=== PATIENT | female | born 1950 | race Asian ===

== ENCOUNTER → 2017-03-15 | Outpatient (CLI) | payer OTHER ==
[~2017-03-15] MED LIST: ALBU6.7H IH; ALPR0.5T8 PO; AMIO200T44 PO; BENZ-26 PO; FAMO20 PO; FLUT1DIS3 IH; FOLI1 PO; HYDR-3110 PO; HYDR-3965 PO; IPRNEB IH; LEVO100 PO; LEVO250T2 PO; LEVO500 PO; METF500T4 PO; METH2.5 PO; PRED20TA3 PO; TEMO15C TP; TIOT185 IH
== END | disposition home or self-care (01) ==
LOC: RADPV 11:12
PROVIDERS: ATTEND Internal Medicine Critical Care Medicine
DX: J44.9 Chronic obstructive pulmonary disease, unspecified (principal); J90 Pleural effusion, not elsewhere classified; I51.7 Cardiomegaly; R91.8 Other nonspecific abnormal finding of lung field; C34.90 Malignant neoplasm of unspecified part of unspecified bronchus or lung; J94.8 Other specified pleural conditions; J18.1 Lobar pneumonia, unspecified organism
CPT/HCPCS: 71020

== ENCOUNTER 2017-03-20 16:19 | Inpatient (IN) | payer OTHER ==
[~2017-03-20] VITALS: Ht 154.9 cm; Wt 60.5 kg
[~2017-03-20 16:19] MED LIST changes: -LEVO250T2 PO; -LEVO500 PO; -PRED20TA3 PO
[2017-03-20] MEDS ORDERED: IPRATROPIUM BROMIDE 0.5 MG/2.5 ML NEB SOLUTION NEB ONE (16:45)
[2017-03-20] MEDS ORDERED: ALBUTEROL SULFATE 5 MG/ML 20 ML NEB SOLN [BULK] NEB ONE (16:45)
[2017-03-20 16:52] LABS: GLUCOSE,POINT OF CARE 156 MG/DL (70-110)
[2017-03-20 17:18] LABS: BASOPHILS % (AUTO) 0.5 % (0.0-2.0); EOSINOPHILS % (AUTO) 10.3 % (1.0-6.0); HEMATOCRIT 23.8 % (36-46); HEMOGLOBIN 7.3 g/dL (12.0-16.0); LYMPHOCYTES # (AUTO) 1.4 K/uL (1.0-4.8); LYMPHOCYTES % (AUTO) 14.3 % (22.0-44.0); MEAN CORPUSCULAR HEMOGLOBIN 24.9 pg (26.0-34.0); MEAN CORPUSCULAR HGB CONC 30.5 G/dL (31.0-37.0); MEAN CORPUSCULAR VOLUME 82 fL (80-100); MONOCYTES # (AUTO) 0.9 K/uL (0.1-1.0); MONOCYTES % (AUTO) 9.6 % (2.0-9.0); NEUTROPHILS # (AUTO) 6.5 K/uL (1.8-7.7); NEUTROPHILS % (AUTO) 65.3 % (40.0-70.0); PLATELET COUNT (AUTO) 417 K/uL (150-450); RED BLOOD CELL COUNT(AUTO) 2.92 MIL/uL (4.00-5.20); RED CELL DISTRIBUTION WIDTH 18.8 % (11.5-14.5); WHITE BLOOD COUNT (AUTO) 9.9 K/uL (4.5-11.0)
[2017-03-20] MEDS ORDERED: 0.9% SODIUM CHLORIDE 5 ML NEB SOLUTION NEB ONE (17:21)
[2017-03-20 17:28] LABS: RBC MORPHOLOGY COMMENT ABNORMAL RBC MORPH
[2017-03-20 17:32] LABS: ANION GAP 6 mmol/L (8-16); CALCIUM, TOTAL 9.7 mg/dL (8.8-10.5); CARBON DIOXIDE 31 mmol/L (22-29); CHLORIDE 94 mmol/L (98-107); CREATININE 0.75 mg/dL (0.60-1.30); GLOMERULAR FILTR. RATE CALC > 60 mL/min (>60); POTASSIUM 3.8 mmol/L (3.5-5.1); SODIUM SERUM 131 mmol/L (136-145); UREA NITROGEN, BLOOD 12 mg/dL (7-18)
[2017-03-20 17:37] LABS: B-TYPE NATRIURETIC PEPTIDE 207 pg/mL (0-100)
[2017-03-20 17:38] LABS: ALANINE AMINOTRANSFERASE 49 U/L (12-78); ALBUMIN 2.4 g/dL (3.4-5.0); ASPARTATE AMINOTRANSFERASE 33 U/L (15-37); BILIRUBIN,TOTAL 0.2 mg/dL (0.1-1.0); TOTAL PROTEIN, SERUM 7.4 g/dL (6.4-8.2)
[2017-03-20] MEDS ORDERED: DEXAMETHASONE SOD PHOS 4 MG/ML 5 ML VIAL IVP ONE (18:00)
[2017-03-20 18:12] LABS: APPEARANCE,URINE CLEAR (CLEAR); GLUCOSE, URINE (UA) NEGATIVE (NEGATIVE); KETONES,URINE NEGATIVE (NEGATIVE); LEUKOCYTE ESTERASE ,URINE NEGATIVE (NEGATIVE); OCCULT BLOOD,URINE NEGATIVE (NEGATIVE); PROTEIN,URINE NEGATIVE (NEGATIVE)
[2017-03-20 18:17] LABS: ADD UA MICROSCOPIC NO
[2017-03-20] MEDS ORDERED: 0.9% SODIUM CHLORIDE 10 ML SYRINGE IVP PRN (19:45)
[2017-03-20] MEDS ORDERED: ACETAMINOPHEN 325 MG TABLET PO PRN (19:45)
[2017-03-20] MEDS ORDERED: ONDANSETRON HCL 4 MG/2 ML VIAL IVP PRN (19:45)
[2017-03-20 20:15] VITALS: BP 99/46
[2017-03-20] MEDS ORDERED: ALBUTEROL SULFATE 2.5 MG/0.5 ML NEB SOLUTION NEB PRN (22:45)
[2017-03-20] MEDS ORDERED: IPRATROPIUM BROMIDE 0.5 MG/2.5 ML NEB SOLUTION NEB PRN (22:45)
[2017-03-20] MEDS ORDERED: MethylPREDNISolone SOD SUCC 125 MG/2 ML VIAL IVP ONE (23:00)
[2017-03-20] MEDS: PROMETHAZINE HCL/CODEINE 6.25-10MG/5ML SYRUP UDCUP PO PRN (23:40)
[2017-03-21 00:18] VITALS: BP 100/52
[2017-03-21] MEDS ORDERED: 0.9% SODIUM CHLORIDE 5 ML NEB SOLUTION NEB ONE (01:43)
[2017-03-21] MEDS: ALBUTEROL SULFATE 2.5 MG/0.5 ML NEB SOLUTION NEB SCH ×4 (01:43→20:02)
[2017-03-21 04:30] VITALS: BP 106/57
[2017-03-21] MEDS: LEVOTHYROXINE SODIUM 100 MCG TABLET PO SCH (06:15)
[2017-03-21] MEDS: IPRATROPIUM BROMIDE 0.5 MG/2.5 ML NEB SOLUTION NEB SCH ×3 (07:38→20:02)
[2017-03-21] MEDS ORDERED: MethylPREDNISolone SOD SUCC 40 MG/ML VIAL IVP SCH (08:00)
[2017-03-21 08:09] VITALS: BP_SYST 105; BP_SYST 90; BP_DIAS 49; BP_DIAS 58
[2017-03-21] MEDS: AMIODARONE HCL 200 MG TABLET PO SCH (08:40)
[2017-03-21] MEDS: MetFORMIN HCL 500 MG TABLET PO SCH ×2 (08:40→18:43)
[2017-03-21] MEDS: FOLIC ACID 1 MG TABLET PO SCH (08:40)
[2017-03-21] MEDS: PROMETHAZINE HCL/CODEINE 6.25-10MG/5ML SYRUP UDCUP PO PRN ×3 (08:41→20:15)
[2017-03-21] MEDS ORDERED: BENZONATATE 100 MG CAPSULE PO SCH (09:00)
[2017-03-21] MEDS ORDERED: FOLIC ACID 1 MG TABLET PO SCH (09:00)
[2017-03-21 11:21] VITALS: BP 105/57
[2017-03-21 13:16] LABS: EOSINOPHILS % (AUTO) 0 % (1.0-6.0); HEMATOCRIT 24.3 % (36-46); HEMOGLOBIN 7.6 g/dL (12.0-16.0); LYMPHOCYTES # (AUTO) 0.4 K/uL (1.0-4.8); LYMPHOCYTES % (AUTO) 3.6 % (22.0-44.0); MEAN CORPUSCULAR HEMOGLOBIN 25.8 pg (26.0-34.0); MEAN CORPUSCULAR HGB CONC 31.4 G/dL (31.0-37.0); MEAN CORPUSCULAR VOLUME 82 fL (80-100); MONOCYTES # (AUTO) 0.3 K/uL (0.1-1.0); MONOCYTES % (AUTO) 2.7 % (2.0-9.0); NEUTROPHILS # (AUTO) 9.6 K/uL (1.8-7.7); PLATELET COUNT (AUTO) 442 K/uL (150-450); RED BLOOD CELL COUNT(AUTO) 2.96 MIL/uL (4.00-5.20); RED CELL DISTRIBUTION WIDTH 19.1 % (11.5-14.5); WHITE BLOOD COUNT (AUTO) 10.3 K/uL (4.5-11.0)
[2017-03-21 13:20] LABS: NEUTROPHILS % (AUTO) 93.7 % (40.0-70.0)
[2017-03-21 13:28] LABS: ALANINE AMINOTRANSFERASE 48 U/L (12-78); ALBUMIN 2.4 g/dL (3.4-5.0); ANION GAP 5 mmol/L (8-16); ASPARTATE AMINOTRANSFERASE 25 U/L (15-37); BILIRUBIN,TOTAL 0.1 mg/dL (0.1-1.0); CALCIUM, TOTAL 10.5 mg/dL (8.8-10.5); CARBON DIOXIDE 32 mmol/L (22-29); CHLORIDE 100 mmol/L (98-107); CREATININE 0.77 mg/dL (0.60-1.30); GLOMERULAR FILTR. RATE CALC > 60 mL/min (>60); POTASSIUM 4.7 mmol/L (3.5-5.1); SODIUM SERUM 137 mmol/L (136-145); TOTAL PROTEIN, SERUM 7.6 g/dL (6.4-8.2); UREA NITROGEN, BLOOD 13 mg/dL (7-18)
[2017-03-21 13:38] LABS: RBC MORPHOLOGY COMMENT ABNORMAL RBC MORPH
[2017-03-21 15:40] VITALS: BP 96/51
[2017-03-21] MEDS: BENZONATATE 100 MG CAPSULE PO SCH ×2 (16:00→20:16)
[2017-03-21] MEDS: MethylPREDNISolone SOD SUCC 40 MG/ML VIAL IVP SCH ×2 (18:43→23:42)
[2017-03-21 19:50] VITALS: BP 94/55
[2017-03-21] MEDS: ALPRAZolam 0.25 MG TABLET PO SCH (20:14)
[2017-03-22 00:25] VITALS: BP 97/50
[2017-03-22] MEDS: IPRATROPIUM BROMIDE 0.5 MG/2.5 ML NEB SOLUTION NEB SCH ×4 (02:17→20:22)
[2017-03-22] MEDS: ALBUTEROL SULFATE 2.5 MG/0.5 ML NEB SOLUTION NEB SCH ×4 (02:17→20:22)
[2017-03-22 04:00] VITALS: BP 92/50
[2017-03-22] MEDS: PROMETHAZINE HCL/CODEINE 6.25-10MG/5ML SYRUP UDCUP PO PRN ×3 (04:37→20:47)
[2017-03-22] MEDS: MethylPREDNISolone SOD SUCC 40 MG/ML VIAL IVP SCH ×3 (05:44→17:39)
[2017-03-22] MEDS: LEVOTHYROXINE SODIUM 100 MCG TABLET PO SCH (05:47)
[2017-03-22 06:09] LABS: EOSINOPHILS % (AUTO) 0.02 % (1.0-6.0); HEMATOCRIT 23.6 % (36-46); HEMOGLOBIN 7.4 g/dL (12.0-16.0); LYMPHOCYTES # (AUTO) 0.4 K/uL (1.0-4.8); LYMPHOCYTES % (AUTO) 2.2 % (22.0-44.0); MEAN CORPUSCULAR HEMOGLOBIN 25.9 pg (26.0-34.0); MEAN CORPUSCULAR HGB CONC 31.3 G/dL (31.0-37.0); MEAN CORPUSCULAR VOLUME 83 fL (80-100); MONOCYTES # (AUTO) 0.5 K/uL (0.1-1.0); MONOCYTES % (AUTO) 3.1 % (2.0-9.0); NEUTROPHILS # (AUTO) 15.9 K/uL (1.8-7.7); PLATELET COUNT (AUTO) 408 K/uL (150-450); RED BLOOD CELL COUNT(AUTO) 2.85 MIL/uL (4.00-5.20); RED CELL DISTRIBUTION WIDTH 18.7 % (11.5-14.5); WHITE BLOOD COUNT (AUTO) 16.8 K/uL (4.5-11.0)
[2017-03-22 06:16] LABS: NEUTROPHILS % (AUTO) 94.8 % (40.0-70.0)
[2017-03-22 06:28] LABS: ALANINE AMINOTRANSFERASE 60 U/L (12-78); ALBUMIN 2.3 g/dL (3.4-5.0); ANION GAP 3 mmol/L (8-16); ASPARTATE AMINOTRANSFERASE 31 U/L (15-37); CALCIUM, TOTAL 10.4 mg/dL (8.8-10.5); CARBON DIOXIDE 34 mmol/L (22-29); CHLORIDE 101 mmol/L (98-107); CREATININE 0.89 mg/dL (0.60-1.30); GLOMERULAR FILTR. RATE CALC > 60 mL/min (>60); POTASSIUM 4.6 mmol/L (3.5-5.1); SODIUM SERUM 138 mmol/L (136-145); UREA NITROGEN, BLOOD 18 mg/dL (7-18)
[2017-03-22] MEDS ORDERED: DEXTROSE 50%-WATER 25 GM/50 ML SYRINGE IVP PRN (07:00)
[2017-03-22 07:01] LABS: BILIRUBIN,TOTAL 0.2 mg/dL (0.1-1.0)
[2017-03-22 08:06] VITALS: BP 111/52
[2017-03-22 08:15] LABS: RBC MORPHOLOGY COMMENT ABNORMAL RBC MORPH
[2017-03-22] MEDS: AMIODARONE HCL 200 MG TABLET PO SCH (08:19)
[2017-03-22] MEDS: MetFORMIN HCL 500 MG TABLET PO SCH ×2 (08:19→17:41)
[2017-03-22] MEDS: METHOTREXATE SODIUM 2.5 MG TABLET PO SCH ×2 (08:19→20:46)
[2017-03-22] MEDS: BENZONATATE 100 MG CAPSULE PO SCH ×4 (08:20→21:00)
[2017-03-22] MEDS ORDERED: METHOTREXATE SODIUM 2.5 MG TABLET PO SCH (09:00)
[2017-03-22 11:33] VITALS: BP 94/53
[2017-03-22 12:37] LABS: GLUCOSE,POINT OF CARE 177 MG/DL (70-110)
[2017-03-22] MEDS: INSULIN ASPART 100 UNITS/ML SQ PRN ×2 (12:43→17:46)
[2017-03-22 15:39] VITALS: BP 102/51
[2017-03-22 19:57] VITALS: BP 105/59
[2017-03-22] MEDS: ALPRAZolam 0.25 MG TABLET PO SCH ×2 (20:46→21:00)
[2017-03-23 00:21] VITALS: BP 97/55
[2017-03-23] MEDS: MethylPREDNISolone SOD SUCC 40 MG/ML VIAL IVP SCH ×5 (00:43→23:55)
[2017-03-23] MEDS: ALPRAZolam 0.25 MG TABLET PO SCH ×2 (00:49→20:52)
[2017-03-23] MEDS: ALBUTEROL SULFATE 2.5 MG/0.5 ML NEB SOLUTION NEB SCH ×4 (02:13→19:40)
[2017-03-23] MEDS: IPRATROPIUM BROMIDE 0.5 MG/2.5 ML NEB SOLUTION NEB SCH ×4 (02:13→19:40)
[2017-03-23] MEDS: LEVOTHYROXINE SODIUM 100 MCG TABLET PO SCH (06:50)
[2017-03-23 07:14] VITALS: BP 106/52
[2017-03-23 08:03] LABS: GLUCOSE,POINT OF CARE 163 MG/DL (70-110)
[2017-03-23] MEDS: FOLIC ACID 1 MG TABLET PO SCH (08:45)
[2017-03-23] MEDS: AMIODARONE HCL 200 MG TABLET PO SCH (08:45)
[2017-03-23] MEDS: BENZONATATE 100 MG CAPSULE PO SCH ×3 (08:46→20:18)
[2017-03-23] MEDS: PROMETHAZINE HCL/CODEINE 6.25-10MG/5ML SYRUP UDCUP PO PRN ×3 (08:49→22:26)
[2017-03-23] MEDS: MetFORMIN HCL 500 MG TABLET PO SCH ×2 (08:52→18:23)
[2017-03-23 12:03] VITALS: BP 105/55
[2017-03-23] MEDS: INSULIN ASPART 100 UNITS/ML SQ PRN ×3 (12:54→20:51)
[2017-03-23 16:23] VITALS: BP 105/65
[2017-03-23 19:46] VITALS: BP 107/61
[2017-03-23 23:50] VITALS: BP 118/59
[2017-03-24] MEDS: ALBUTEROL SULFATE 2.5 MG/0.5 ML NEB SOLUTION NEB SCH ×4 (02:24→20:19)
[2017-03-24] MEDS: IPRATROPIUM BROMIDE 0.5 MG/2.5 ML NEB SOLUTION NEB SCH ×4 (02:24→20:19)
[2017-03-24 04:51] VITALS: BP 106/52
[2017-03-24] MEDS: MethylPREDNISolone SOD SUCC 40 MG/ML VIAL IVP SCH ×4 (05:35→23:08)
[2017-03-24] MEDS: LEVOTHYROXINE SODIUM 100 MCG TABLET PO SCH (05:37)
[2017-03-24] MEDS: INSULIN ASPART 100 UNITS/ML SQ PRN ×3 (05:38→20:30)
[2017-03-24 07:12] VITALS: BP 107/44
[2017-03-24] MEDS: PROMETHAZINE HCL/CODEINE 6.25-10MG/5ML SYRUP UDCUP PO PRN ×3 (08:09→23:05)
[2017-03-24] MEDS: AMIODARONE HCL 200 MG TABLET PO SCH (08:10)
[2017-03-24] MEDS: BENZONATATE 100 MG CAPSULE PO SCH ×3 (08:10→20:30)
[2017-03-24] MEDS: MetFORMIN HCL 500 MG TABLET PO SCH ×2 (08:10→17:58)
[2017-03-24] MEDS: FOLIC ACID 1 MG TABLET PO SCH (08:10)
[2017-03-24 11:44] VITALS: BP 105/53
[2017-03-24 12:17] LABS: GLUCOSE COMMENT 1 Received Meds; GLUCOSE,POINT OF CARE 249 MG/DL (70-110)
[2017-03-24] MEDS: LEVOFLOXACIN 500 MG TABLET PO SCH (14:00)
[2017-03-24 15:50] VITALS: BP 105/46
[2017-03-24 20:12] LABS: GLUCOSE COMMENT 1 Received Meds; GLUCOSE,POINT OF CARE 159 MG/DL (70-110)
[2017-03-24 20:23] LABS: GLUCOSE COMMENT 1 Received Meds; GLUCOSE,POINT OF CARE 215 MG/DL (70-110)
[2017-03-24 20:23] LABS: GLUCOSE,POINT OF CARE 185 MG/DL (70-110)
[2017-03-24] MEDS: ALPRAZolam 0.25 MG TABLET PO SCH (20:30)
[2017-03-24 20:42] VITALS: BP 120/57
[2017-03-25 00:06] VITALS: BP 103/50
[2017-03-25] MEDS: ALBUTEROL SULFATE 2.5 MG/0.5 ML NEB SOLUTION NEB SCH ×4 (01:58→19:54)
[2017-03-25] MEDS: IPRATROPIUM BROMIDE 0.5 MG/2.5 ML NEB SOLUTION NEB SCH ×4 (01:58→19:54)
[2017-03-25 04:39] VITALS: BP 102/54
[2017-03-25] MEDS: MethylPREDNISolone SOD SUCC 40 MG/ML VIAL IVP SCH ×3 (05:48→17:22)
[2017-03-25] MEDS: LEVOTHYROXINE SODIUM 100 MCG TABLET PO SCH (05:50)
[2017-03-25] MEDS: INSULIN ASPART 100 UNITS/ML SQ PRN ×4 (05:52→22:06)
[2017-03-25] MEDS: LEVOFLOXACIN 500 MG TABLET PO SCH (08:04)
[2017-03-25] MEDS: MetFORMIN HCL 500 MG TABLET PO SCH ×2 (08:04→16:43)
[2017-03-25] MEDS: AMIODARONE HCL 200 MG TABLET PO SCH (08:04)
[2017-03-25] MEDS: FOLIC ACID 1 MG TABLET PO SCH (08:05)
[2017-03-25] MEDS: BENZONATATE 100 MG CAPSULE PO SCH ×3 (08:05→20:13)
[2017-03-25 08:18] VITALS: BP 104/69
[2017-03-25] MEDS: PROMETHAZINE HCL/CODEINE 6.25-10MG/5ML SYRUP UDCUP PO PRN ×2 (08:19→20:13)
[2017-03-25 11:38] VITALS: BP 116/50
[2017-03-25] MEDS ORDERED: SODIUM CHLORIDE 0.9% 100 ML ONE (13:44)
[2017-03-25] MEDS ORDERED: IOVERSOL 320 MG/ML 100 ML VIAL ONE (13:44)
[2017-03-25 16:05] VITALS: BP 110/55
[2017-03-25] MEDS: ALPRAZolam 0.25 MG TABLET PO SCH (20:13)
[2017-03-25 21:47] VITALS: BP 116/69
[2017-03-26] VITALS (7 sets, daily range): BP systolic 101–121; BP diastolic 47–61
[2017-03-26] MEDS: MethylPREDNISolone SOD SUCC 40 MG/ML VIAL IVP SCH ×5 (00:44→23:55)
[2017-03-26] MEDS: ALBUTEROL SULFATE 2.5 MG/0.5 ML NEB SOLUTION NEB SCH ×4 (02:06→19:33)
[2017-03-26] MEDS: IPRATROPIUM BROMIDE 0.5 MG/2.5 ML NEB SOLUTION NEB SCH ×4 (02:06→19:33)
[2017-03-26] MEDS: LEVOTHYROXINE SODIUM 100 MCG TABLET PO SCH (05:58)
[2017-03-26 07:03] LABS: EOSINOPHILS % (AUTO) 0 % (1.0-6.0); HEMATOCRIT 25.9 % (36-46); LYMPHOCYTES # (AUTO) 0.3 K/uL (1.0-4.8); LYMPHOCYTES % (AUTO) 2.1 % (22.0-44.0); MEAN CORPUSCULAR HEMOGLOBIN 25.8 pg (26.0-34.0); MEAN CORPUSCULAR HGB CONC 30.8 G/dL (31.0-37.0); MEAN CORPUSCULAR VOLUME 84 fL (80-100); MONOCYTES # (AUTO) 0.2 K/uL (0.1-1.0); MONOCYTES % (AUTO) 1.7 % (2.0-9.0); NEUTROPHILS # (AUTO) 12.2 K/uL (1.8-7.7); PLATELET COUNT (AUTO) 377 K/uL (150-450); RED BLOOD CELL COUNT(AUTO) 3.09 MIL/uL (4.00-5.20); RED CELL DISTRIBUTION WIDTH 19.2 % (11.5-14.5); WHITE BLOOD COUNT (AUTO) 12.6 K/uL (4.5-11.0)
[2017-03-26 07:11] LABS: NEUTROPHILS % (AUTO) 96.2 % (40.0-70.0)
[2017-03-26 07:55] LABS: ANION GAP 1 mmol/L (8-16); CARBON DIOXIDE 40 mmol/L (22-29); CHLORIDE 101 mmol/L (98-107); CREATININE 0.69 mg/dL (0.60-1.30); POTASSIUM 3.9 mmol/L (3.5-5.1); SODIUM SERUM 142 mmol/L (136-145); UREA NITROGEN, BLOOD 17 mg/dL (7-18)
[2017-03-26 07:56] LABS: CALCIUM, TOTAL 10.1 mg/dL (8.8-10.5); GLOMERULAR FILTR. RATE CALC > 60 mL/min (>60)
[2017-03-26] MEDS: BENZONATATE 100 MG CAPSULE PO SCH ×3 (08:18→20:45)
[2017-03-26] MEDS: AMIODARONE HCL 200 MG TABLET PO SCH (08:18)
[2017-03-26] MEDS: FOLIC ACID 1 MG TABLET PO SCH (08:18)
[2017-03-26] MEDS: LEVOFLOXACIN 500 MG TABLET PO SCH (08:18)
[2017-03-26] MEDS: PROMETHAZINE HCL/CODEINE 6.25-10MG/5ML SYRUP UDCUP PO PRN ×2 (08:22→17:39)
[2017-03-26 09:03] LABS: GLUCOSE COMMENT 1 Received Meds; GLUCOSE,POINT OF CARE 188 MG/DL (70-110)
[2017-03-26 09:38] LABS: GLUCOSE COMMENT 1 Received Meds; GLUCOSE,POINT OF CARE 238 MG/DL (70-110)
[2017-03-26 09:38] LABS: GLUCOSE COMMENT 1 Received Meds; GLUCOSE,POINT OF CARE 177 MG/DL (70-110)
[2017-03-26 09:38] LABS: GLUCOSE COMMENT 1 Received Meds; GLUCOSE,POINT OF CARE 203 MG/DL (70-110)
[2017-03-26 10:39] LABS: PROTHROMBIN TIME 10.8 SEC (9.4-11.6)
[2017-03-26] MEDS ORDERED: FentaNYL CITRATE-PF 100 MCG/2 ML VIAL ONE (11:50)
[2017-03-26] MEDS ORDERED: LIDOCAINE HCL/PF 1% 30 ML VIAL ONE (11:51)
[2017-03-26] MEDS ORDERED: MIDAZOLAM HCL 2 MG/2 ML VIAL ONE (11:51)
[2017-03-26] MEDS ORDERED: GELATIN SPONGE,ABSORBABLE 12-7 MM TP ONE (12:52)
[2017-03-26] MEDS: INSULIN ASPART 100 UNITS/ML SQ PRN (17:42)
[2017-03-26] MEDS: ALPRAZolam 0.25 MG TABLET PO SCH (20:45)
[2017-03-26 21:17] LABS: GLUCOSE,POINT OF CARE 190 MG/DL (70-110)
[2017-03-27] MEDS: IPRATROPIUM BROMIDE 0.5 MG/2.5 ML NEB SOLUTION NEB SCH ×4 (02:13→19:34)
[2017-03-27] MEDS: ALBUTEROL SULFATE 2.5 MG/0.5 ML NEB SOLUTION NEB SCH ×4 (02:13→19:34)
[2017-03-27 04:25] VITALS: BP 100/54
[2017-03-27] MEDS: PROMETHAZINE HCL/CODEINE 6.25-10MG/5ML SYRUP UDCUP PO PRN ×2 (05:20→16:05)
[2017-03-27] MEDS: MethylPREDNISolone SOD SUCC 40 MG/ML VIAL IVP SCH ×2 (05:20→12:26)
[2017-03-27] MEDS: LEVOTHYROXINE SODIUM 100 MCG TABLET PO SCH (05:20)
[2017-03-27] MEDS: INSULIN ASPART 100 UNITS/ML SQ PRN ×4 (05:21→20:37)
[2017-03-27 06:37] LABS: GLUCOSE COMMENT 1 Received Meds; GLUCOSE,POINT OF CARE 204 MG/DL (70-110)
[2017-03-27 07:22] VITALS: BP 98/58
[2017-03-27] MEDS: FOLIC ACID 1 MG TABLET PO SCH (08:02)
[2017-03-27] MEDS: AMIODARONE HCL 200 MG TABLET PO SCH (08:02)
[2017-03-27] MEDS: BENZONATATE 100 MG CAPSULE PO SCH ×3 (08:02→20:00)
[2017-03-27] MEDS: LEVOFLOXACIN 500 MG TABLET PO SCH (08:02)
[2017-03-27 09:27] LABS: GLUCOSE COMMENT 1 Received Meds; GLUCOSE,POINT OF CARE 148 MG/DL (70-110)
[2017-03-27 09:27] LABS: GLUCOSE COMMENT 1 Received Meds; GLUCOSE,POINT OF CARE 191 MG/DL (70-110)
[2017-03-27 09:27] LABS: GLUCOSE COMMENT 1 Received Meds; GLUCOSE,POINT OF CARE 261 MG/DL (70-110)
[2017-03-27 09:27] LABS: GLUCOSE COMMENT 1 Received Meds; GLUCOSE,POINT OF CARE 210 MG/DL (70-110)
[2017-03-27 09:28] LABS: GLUCOSE COMMENT 1 Received Meds; GLUCOSE,POINT OF CARE 245 MG/DL (70-110)
[2017-03-27 09:31] LABS: GLUCOSE,POINT OF CARE 158 MG/DL (70-110)
[2017-03-27 09:32] LABS: GLUCOSE,POINT OF CARE 324 MG/DL (70-110)
[2017-03-27 11:07] VITALS: BP 106/48
[2017-03-27 11:46] LABS: GLUCOSE,POINT OF CARE 215 MG/DL (70-110)
[2017-03-27 15:20] VITALS: BP 106/56
[2017-03-27] MEDS: PredniSONE 20 MG TABLET PO SCH (16:03)
[2017-03-27] MEDS: MetFORMIN HCL 500 MG TABLET PO SCH (18:00)
[2017-03-27 19:07] VITALS: BP 107/45
[2017-03-27] MEDS: ALPRAZolam 0.25 MG TABLET PO SCH (19:58)
[2017-03-27 20:22] LABS: GLUCOSE,POINT OF CARE 237 MG/DL (70-110)
[2017-03-27 20:27] LABS: GLUCOSE,POINT OF CARE 292 MG/DL (70-110)
[2017-03-27 23:40] VITALS: BP 109/46
[2017-03-28] MEDS: IPRATROPIUM BROMIDE 0.5 MG/2.5 ML NEB SOLUTION NEB SCH ×3 (01:30→13:54)
[2017-03-28] MEDS: ALBUTEROL SULFATE 2.5 MG/0.5 ML NEB SOLUTION NEB SCH ×3 (01:30→13:54)
[2017-03-28] MEDS: PROMETHAZINE HCL/CODEINE 6.25-10MG/5ML SYRUP UDCUP PO PRN ×2 (03:59→10:42)
[2017-03-28 04:26] VITALS: BP 104/45
[2017-03-28] MEDS: LEVOTHYROXINE SODIUM 100 MCG TABLET PO SCH (05:38)
[2017-03-28] MEDS: INSULIN ASPART 100 UNITS/ML SQ PRN ×2 (05:39→11:50)
[2017-03-28 07:08] VITALS: BP 121/60
[2017-03-28 07:22] LABS: GLUCOSE COMMENT 1 Received Meds; GLUCOSE,POINT OF CARE 216 MG/DL (70-110)
[2017-03-28] MEDS: PredniSONE 20 MG TABLET PO SCH (08:37)
[2017-03-28] MEDS: FOLIC ACID 1 MG TABLET PO SCH (08:37)
[2017-03-28] MEDS: AMIODARONE HCL 200 MG TABLET PO SCH (08:37)
[2017-03-28] MEDS: LEVOFLOXACIN 500 MG TABLET PO SCH (08:37)
[2017-03-28] MEDS: MetFORMIN HCL 500 MG TABLET PO SCH (08:37)
[2017-03-28] MEDS: BENZONATATE 100 MG CAPSULE PO SCH (08:38)
[2017-03-28 11:27] VITALS: BP 107/68
[2017-03-28 11:47] LABS: GLUCOSE COMMENT 1 Received Meds; GLUCOSE,POINT OF CARE 142 MG/DL (70-110)
[2017-03-28] MEDS ORDERED: LEVO250T2 PO (13:51)
[2017-03-28] MEDS ORDERED: PRED20TA3 PO (13:53)
[2017-03-31 00:12] LABS: GLUCOSE,POINT OF CARE 179 MG/DL (70-110)
[2017-04-29] MEDS ORDERED: FOLI1 PO (13:54)
[2017-05-04] MEDS ORDERED: LEVO500 PO (15:03)
== END 2017-03-28 14:25 | disposition home or self-care (01) | DRG 189 ==
LOC: EMS 16:22 → 5N 19:44
PROVIDERS: ADMIT Family Medicine; ATTEND Family Medicine
PROC: 0BBC3ZX Excision of Right Upper Lung Lobe, Percutaneous Approach, Diagnostic (ICD-10-PCS; principal; 2017-03-27)
DX: J96.20 Acute and chronic respiratory failure, unspecified whether with hypoxia or hypercapnia (principal); J44.1 Chronic obstructive pulmonary disease with (acute) exacerbation; J98.11 Atelectasis; E44.0 Moderate protein-calorie malnutrition; E03.9 Hypothyroidism, unspecified; E11.9 Type 2 diabetes mellitus without complications; L40.9 Psoriasis, unspecified; E78.5 Hyperlipidemia, unspecified; I48.91 Unspecified atrial fibrillation; M19.90 Unspecified osteoarthritis, unspecified site; J45.909 Unspecified asthma, uncomplicated; J47.9 Bronchiectasis, uncomplicated; I70.0 Atherosclerosis of aorta; F17.210 Nicotine dependence, cigarettes, uncomplicated; R91.8 Other nonspecific abnormal finding of lung field; Z53.29 Procedure and treatment not carried out because of patient's decision for other reasons; I11.0 Hypertensive heart disease with heart failure; I50.9 Heart failure, unspecified; Z88.1 Allergy status to other antibiotic agents; Z83.3 Family history of diabetes mellitus; Z79.2 Long term (current) use of antibiotics; Z79.899 Other long term (current) drug therapy; Z92.3 Personal history of irradiation; Z82.49 Family history of ischemic heart disease and other diseases of the circulatory system; Z92.21 Personal history of antineoplastic chemotherapy; Z86.711 Personal history of pulmonary embolism; Z87.01 Personal history of pneumonia (recurrent); Z71.6 Tobacco abuse counseling; Z68.25 Body mass index [BMI] 25.0-25.9, adult
CPT/HCPCS: 32405; 71020; 71250; 71260; 82962; 83735; 88305; 88312; 88341; 88342; 93005; 94640; 96374; 99285; J1100; J2250; J2920; J2930; J3010; J3490; J7050; J8610